=== PATIENT | male | born 1935 | race Caucasian/White ===

== ENCOUNTER 2019-07-29 07:00 | Day surgery (SDC) | payer OTHER ==
[2019-07-25 12:31] LABS: BASOPHILS % (AUTO) 1.1 % (0.0-5.0); EOSINOPHILS % (AUTO) 4.7 % (0.0-8.0); HEMATOCRIT 38.2 % (42-54); LYMPHOCYTES % (AUTO) 19.4 % (21.0-51.0); MEAN CORPUSCULAR HGB CONC 32.5 g/dL (32.0-36.0); MEAN CORPUSCULAR VOLUME 95.5 fL (79-99); MONOCYTES % (AUTO) 7.2 % (3.0-13.0); NEUTROPHILS % (AUTO) 67.3 % (40.0-77.0); PLATELET COUNT (AUTO) 238 K/uL (130-400); RED CELL DISTRIBUTION WIDTH 13.2 % (11.0-15.5); WHITE BLOOD COUNT (AUTO) 7.5 K/uL (4.8-10.8)
[2019-07-25 12:45] LABS: CREATININE 0.8 mg/dL (0.5-1.5); POTASSIUM 4.4 mmol/L (3.5-5.1)
[2019-07-25 12:48] LABS: INR 1.02 (0.85-1.15); PARTIAL THROMBOPLASTIN TIME 32.3 SEC (26.3-35.5); PROTHROMBIN TIME 10.7 SEC (9.6-11.6)
[2019-07-25 12:55] VITALS: BP 111/65
[2019-07-25 12:57] LABS: APPEARANCE,URINE Clear (CLEAR); BILIRUBIN,URINE Negative (NEGATIVE); COLOR,URINE Yellow (YELLOW); GLUCOSE, URINE (UA) Negative (NEGATIVE); KETONES,URINE Negative (NEGATIVE); LEUKOCYTE ESTERASE ,URINE Negative (NEGATIVE); NITRATE,URINE Negative (NEGATIVE); OCCULT BLOOD,URINE Negative (NEGATIVE); PROTEIN,URINE Negative (NEGATIVE)
[2019-07-25 13:28] VITALS: BP 111/65
--- NOTE | 2019-07-25 14:20 | NUR ---
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 PER [facility]ION THEY WILL PROCEED WITH CATH. PT MADE AWARE AND VOICED UNDERSTANDING
[2019-07-29] VITALS (9 sets, daily range): BP systolic 118–142; BP diastolic 63–79
[~2019-07-29] VITALS: Ht 177.8 cm; Wt 79.9 kg
[~2019-07-29 07:00] MED LIST: ASPI-1197 PO; ATOR20TA65 PO; ISOS60TA4 PO; LAMO100T16 PO; LITH300C3 PO; NITR0.4T50 SL; OMEP20TA25 PO; TRAZ-187 PO
[2019-07-29] MEDS ORDERED: SODIUM CHLORIDE 0.9% 1000ML 1,000 ML IV ONE (07:10)
--- NOTE | 2019-07-29 07:50 | NUR ---
PRE PROCEDURE PT ARRIVED AMBULATORY WITH SPOUSE AT SIDE FOR LEFT HEART CATH. PT IN NO DISTRESS AND DENIES PAIN AT THIS TIME. PT MADE COMFORTABLE. CALL LIGHT WITHIN REACH AND BED IN LOWEST POSITION. PT CONNECTED TO CARDIOPULM MONITOR.
[2019-07-29] MEDS ORDERED: BIVALIRUDIN 250 MG/VIAL IV ONE (08:06)
[2019-07-29] MEDS ORDERED: HEPARIN SODIUM 1000UNIT/ML 10ML VIAL ONE (08:06)
[2019-07-29] MEDS ORDERED: IOHEXOL-350 50ML VIAL IV ONE (08:07)
[2019-07-29] MEDS ORDERED: IOHEXOL 350 MG/ML 100ML INFUS..BTL IV ONE (08:07)
[2019-07-29] MEDS ORDERED: LIDOCAINE HCL 2% 20ML ONE (08:07)
[2019-07-29] MEDS ORDERED: NITROGLYCERIN 2 MG/VIAL VIAL IV ONE (08:07)
[2019-07-29] MEDS ORDERED: MIDAZOLAM HCL 1 MG/ML 2ML VIAL ONE (08:14)
--- NOTE | 2019-07-29 08:14 | NUR ---
PROCEDURE TRANSFERRED TO PLATFORM MATERIAL HANDLER MANAGER VIA BED BY BAL FARRELL RN. PT IN NO DISTRESS
[2019-07-29] MEDS ORDERED: SODIUM CHLORIDE 0.9% 1000ML 1,000 ML IV SCH (09:46)
--- NOTE | 2019-07-29 10:05 | NUR ---
POST PROCEDURE PT TRANSFERRED FROM [facility] VIA BED BY BAL FARRELL RN IN NO DISTRESS. PT DENIED DISCOMFORT. PT CONNECTED TO CONTINUOUS CARDIOPULMONARY MACHINE. RAILS X2 CALL LIGHT WITHIN REACH AND BED IN LOWEST POSITION. PT EDUCATED TO KEEP HEAD FLAT AND RT LEG STRAIGHT. PT VOICED UNDERSTANDING.
--- NOTE | 2019-07-29 10:12 | NUR ---
MD FOLLOW UP DR CERRATO IN TO SEE PT. PT INFORMED OF RECOMMENDATIONS FOR HEART SURGERY. PT AND SPOUSE VOICED UNDERSTANDING
--- NOTE | 2019-07-29 10:30 | NUR ---
SURGICAL CONSULT DR MCKEE SPOKE TO PT AND SPOUSE ABOUT SURGERY. PT AND SPOUSE WILL THINK ABOUT PROCEEDING WITH SURGERY RECOMMENDED BY DR CERRATO.
--- NOTE | 2019-07-29 12:55 | NUR ---
ROUNDS DR CERRATO IN TO SEE PT. OK FOR PT TO BE DISCHARGED AND DOES NOT NEED TO F/U IF PT LEAVING BACK HOME. ASSESSED [facility] SITE AND INSTRUCTED PT HE CAN REMOVE DRESSING IN AM, NO HEAVY LIFTING FOR 3 DAYS. PT VOICED UNDERSTANDING Addendum: 07/29/19 at 1330 by FRANKLIN BURCH RN RN DR CERRATO INFORMED PT TO FOLLOW UP WITH DRY COLOR TESTER IN [place] FOR BYPASS SURGERY SOON POSSIBLE
--- NOTE | 2019-07-29 13:50 | NUR ---
ACTIVITY PT ASSISTED TO CHAIR. PT TOLERATED IT WELL AND NO BLEEDING NOTED TO RT GROIN SITE.
--- NOTE | 2019-07-29 14:15 | NUR ---
DISCHARGE DISCHARGED VIA WHEELCHAIR. PT LEFT WITH SPOUSE AT SIDE IN NO DISTRESS.
--- NOTE | 2019-07-29 14:32 | NUR ---
DISCHARGE DAY PT DISCHARGE INSTRUCTION SHEET, MEDICATIONS, AND PT SUMMARY REVIEWED WITH PT. EDUCATED FOR ANY S/S OF BLEEDING TO CATH SITE APPLY DIRECT PRESSURE AND CALL 911. OPPORTUNITY GIVEN TO ASK QUESTIONS OR CONCERNS VOICED. Addendum: 07/29/19 at 1443 by FRANKLIN BURCH RN RN CORRECTION ON TIME FOR [id number]
== END 2019-07-29 14:15 | disposition home or self-care (01) ==
LOC: DAH 07:00
PROVIDERS: ATTEND Internal Medicine Cardiovascular Disease
DX: I25.110 Atherosclerotic heart disease of native coronary artery with unstable angina pectoris (principal); I25.5 Ischemic cardiomyopathy; F31.9 Bipolar disorder, unspecified; K21.9 Gastro-esophageal reflux disease without esophagitis; G47.30 Sleep apnea, unspecified; Z99.89 Dependence on other enabling machines and devices; Z98.890 Other specified postprocedural states; E78.5 Hyperlipidemia, unspecified; Z79.01 Long term (current) use of anticoagulants; Z79.899 Other long term (current) drug therapy
CPT/HCPCS: 36415; 71045; 80048; 81003; 85025; 85610; 85730; 93005; 93458; A4215; A4216; A4221; A4222; A4223 ×3; A4606; A4663; C1760; C1894; J1644; J2250; J3490 ×2; J7030; Q9965; Q9967 ×2; 99156; 99157; J0583